=== PATIENT | male | born 1955 | race Caucasian/White ===

== ENCOUNTER → 2017-11-19 | Outpatient (CLI) | payer OTHER ==
[~2017-11-19] MED LIST: ALEVE220 MG PO; LISINOPRIL20 MG PO; NORVASC5 MG PO; PRINIVIL10 MG PO
== END | disposition home or self-care (01) ==
LOC: CDC 08:51
DX: Z01.810 Encounter for preprocedural cardiovascular examination (principal); I45.2 Bifascicular block; K40.20 Bilateral inguinal hernia, without obstruction or gangrene, not specified as recurrent; I49.1 Atrial premature depolarization; I45.10 Unspecified right bundle-branch block; I44.4 Left anterior fascicular block; R94.31 Abnormal electrocardiogram [ECG] [EKG]
CPT/HCPCS: 93000

== ENCOUNTER 2017-11-24 05:21 | Day surgery (SDC) | payer OTHER ==
[~2017-11-24] VITALS: Ht 180.3 cm; Wt 81.7 kg
[2017-11-24] MEDS ORDERED: TYLENOL325 M2 PO (05:59)
[2017-11-24 06:01] VITALS: BP 134/86
[2017-11-24] MEDS ORDERED: COLACE100 MG PO (10:16)
[2017-11-24] MEDS ORDERED: TRAMADOL HCL50 MG PO (10:16)
[2017-11-24 11:30] VITALS: BP 147/89
[2017-11-24 12:22] VITALS: BP 153/92
== END 2017-11-24 12:40 | disposition home or self-care (01) ==
LOC: SDC
PROC: 0YUA4JZ Supplement Bilateral Inguinal Region with Synthetic Substitute, Percutaneous Endoscopic Approach (ICD-10-PCS; principal; 2017-11-24)
DX: K40.21 Bilateral inguinal hernia, without obstruction or gangrene, recurrent (principal); I45.2 Bifascicular block; G89.29 Other chronic pain; M25.562 Pain in left knee; R68.89 Other general symptoms and signs; I10 Essential (primary) hypertension; E78.5 Hyperlipidemia, unspecified; R73.01 Impaired fasting glucose; Z98.1 Arthrodesis status; F17.200 Nicotine dependence, unspecified, uncomplicated; D75.1 Secondary polycythemia; Z80.8 Family history of malignant neoplasm of other organs or systems; Z82.49 Family history of ischemic heart disease and other diseases of the circulatory system
CPT/HCPCS: 88300; C1727; C1781; J0131; J0690; J1100; J1885; J2250; J2710; J2795; J3010; J7120; J7643

== ENCOUNTER 2017-12-02 10:55 | Inpatient (IN) | payer OTHER ==
[~2017-12-02] VITALS: Ht 180.3 cm; Wt 78.6 kg
[~2017-12-02 10:55] MED LIST changes: +COLACE100 MG PO; +TRAMADOL HCL50 MG PO; +TYLENOL325 M2 PO
[2017-12-02 11:28] LABS: HEMATOCRIT 54.6 % (38.0-50.0); HEMOGLOBIN 19.3 G/DL (12.5-16.6); MCH 31.2 PG (29.0-34.0); MCHC 35.3 G/DL (30.0-36.0); MCV 88.2 FL (86-99); PLATELET COUNT 404 K/uL (156-360); RBC DIS.WIDTH-SD 41.9 % (39-53); RED BLOOD COUNT 6.19 M/uL (4.00-5.50); WHITE BLOOD COUNT 13.7 K/uL (4.1-10.2)
[2017-12-02 11:55] LABS: CHLORIDE 95 MEQ/L (99-109); POTASSIUM 4.1 MEQ/L (3.7-5.4); SODIUM 135 MEQ/L (136-147); TOTAL BILIRUBIN 0.8 MG/DL (0.0-1.0)
[2017-12-02 12:01] LABS: ALKALINE PHOSPHATASE 106 IU/L (3-129); ALT (GPT) 15 IU/L (3-49); AST (GOT) 16 IU/L (2-34); GFR ESTIMATE (CALCULATED) > 59 mL/min/ (58.99-99999); GLUCOSE 118 mg/dL (70-99); TOTAL PROTEIN 7.9 G/DL (6.4-8.3); UREA NITROGEN (BUN) 17 mg/dL (9-23)
[2017-12-02 15:52] VITALS: BP 156/82
[2017-12-02 19:25] VITALS: BP 131/79
[2017-12-03 00:25] VITALS: BP 129/77
[2017-12-03 04:07] VITALS: BP 122/76
[2017-12-03 07:46] LABS: HEMATOCRIT 47.2 % (38.0-50.0); MCH 30.8 PG (29.0-34.0); MCHC 34.7 G/DL (30.0-36.0); MCV 88.6 FL (86-99); PLATELET COUNT 308 K/uL (156-360); RBC DIS.WIDTH-CV 12.9 % (11.8-14.6); RBC DIS.WIDTH-SD 42.1 % (39-53); RED BLOOD COUNT 5.33 M/uL (4.00-5.50); WHITE BLOOD COUNT 10.4 K/uL (4.1-10.2)
[2017-12-03 07:50] LABS: HEMOGLOBIN 16.4 G/DL (12.5-16.6)
[2017-12-03 07:55] VITALS: BP 127/82
[2017-12-03 07:55] LABS: ALBUMIN 4.1 g/dL (3.2-4.8); CHLORIDE 98 mEq/L (99-109); POTASSIUM 4.1 mEq/L (3.7-5.4); SODIUM 138 mEq/L (136-147)
[2017-12-03 07:58] LABS: GLUCOSE 94 mg/dL (70-99); TOTAL PROTEIN 6.3 g/dL (6.4-8.3)
[2017-12-03 08:01] LABS: ALKALINE PHOSPHATASE 96 IU/L (3-129); CREATININE 0.8 mg/dL (0.6-1.3); GFR ESTIMATE (CALCULATED) > 59 mL/min/ (58.99-99999)
[2017-12-03 08:02] LABS: UREA NITROGEN (BUN) 20 mg/dL (9-23)
[2017-12-03 08:03] LABS: AST (GOT) 14 IU/L (2-34)
[2017-12-03 08:04] LABS: ALT (GPT) 15 IU/L (3-49)
[2017-12-03 08:44] LABS: C-REACTIVE PROTEIN 14.8 MG/L (0-10)
[2017-12-03 16:04] VITALS: BP 128/92
[2017-12-03 23:07] VITALS: BP 112/77
[2017-12-04 08:07] LABS: HEMATOCRIT 45.1 % (38.0-50.0); HEMOGLOBIN 15.8 G/DL (12.5-16.6); MCH 30.9 PG (29.0-34.0); MCV 88.3 FL (86-99); PLATELET COUNT 285 K/uL (156-360); RBC DIS.WIDTH-CV 12.4 % (11.8-14.6); RBC DIS.WIDTH-SD 41.1 % (39-53); RED BLOOD COUNT 5.11 M/uL (4.00-5.50); WHITE BLOOD COUNT 10.2 K/uL (4.1-10.2)
[2017-12-04 08:16] LABS: CHLORIDE 96 mEq/L (99-109)
[2017-12-04 08:17] LABS: POTASSIUM 3.7 mEq/L (3.7-5.4); SODIUM 138 mEq/L (136-147)
[2017-12-04 08:19] LABS: GLUCOSE 80 mg/dL (70-99); TOTAL PROTEIN 6.2 g/dL (6.4-8.3)
[2017-12-04 08:21] LABS: TOTAL BILIRUBIN 1.1 mg/dL (0.0-1.0)
[2017-12-04 08:22] LABS: ALKALINE PHOSPHATASE 90 IU/L (3-129)
[2017-12-04 08:23] LABS: CREATININE 0.8 mg/dL (0.6-1.3); GFR ESTIMATE (CALCULATED) > 59 mL/min/ (58.99-99999)
[2017-12-04 08:24] LABS: AST (GOT) 20 IU/L (2-34); UREA NITROGEN (BUN) 20 mg/dL (9-23)
[2017-12-04 08:25] LABS: ALT (GPT) 19 IU/L (3-49)
[2017-12-04 08:36] VITALS: BP 111/73
[2017-12-04 15:50] VITALS: BP 123/91
[2017-12-04 19:58] VITALS: BP 144/87
[2017-12-05 00:31] VITALS: BP 138/70
[2017-12-05 06:59] VITALS: BP 114/68
[2017-12-05 15:26] VITALS: BP 138/84
[2017-12-06 06:54] VITALS: BP 133/80
[2017-12-06 11:17] LABS: HEMOGLOBIN 15.3 G/DL (12.5-16.6); MCH 30.1 PG (29.0-34.0); MCV 88.4 FL (86-99); PLATELET COUNT 253 K/uL (156-360); RBC DIS.WIDTH-CV 12.4 % (11.8-14.6); RBC DIS.WIDTH-SD 40.3 % (39-53); RED BLOOD COUNT 5.09 M/uL (4.00-5.50); WHITE BLOOD COUNT 11.2 K/uL (4.1-10.2)
[2017-12-06 12:26] LABS: ALBUMIN 3.8 G/DL (3.2-4.8); ALT (GPT) 26 IU/L (3-49); AST (GOT) 20 IU/L (2-34); CHLORIDE 100 MEQ/L (99-109); GFR ESTIMATE (CALCULATED) > 59 mL/min/ (58.99-99999); GLUCOSE 85 mg/dL (70-99); POTASSIUM 3.8 MEQ/L (3.7-5.4); SODIUM 134 MEQ/L (136-147); UREA NITROGEN (BUN) 12 mg/dL (9-23)
[2017-12-06 12:29] LABS: ALKALINE PHOSPHATASE 73 IU/L (3-129); TOTAL BILIRUBIN 0.6 MG/DL (0.0-1.0); TOTAL PROTEIN 6.2 G/DL (6.4-8.3)
[2017-12-06 15:22] VITALS: BP 128/80
[2017-12-06 17:57] VITALS: BP 124/77
[2017-12-06 23:42] VITALS: BP 144/81
[2017-12-07 03:55] VITALS: BP 136/64
[2017-12-07 07:31] VITALS: BP 130/85
[2017-12-07 09:41] LABS: HEMATOCRIT 45.1 % (38.0-50.0); HEMOGLOBIN 15.9 G/DL (12.5-16.6); MCH 30.6 PG (29.0-34.0); MCHC 35.3 G/DL (30.0-36.0); MCV 86.7 FL (86-99); PLATELET COUNT 270 K/uL (156-360); RBC DIS.WIDTH-CV 12.3 % (11.8-14.6); RBC DIS.WIDTH-SD 39.2 % (39-53); WHITE BLOOD COUNT 10.4 K/uL (4.1-10.2)
[2017-12-07 09:58] LABS: CHLORIDE 100 MEQ/L (99-109); CREATININE 0.9 MG/DL (0.6-1.3); GFR ESTIMATE (CALCULATED) > 59 mL/min/ (58.99-99999); GLUCOSE 105 mg/dL (70-99); MAGNESIUM 1.6 mg/dl (1.3-2.7); PHOSPHORUS 4.1 mg/dL (2.5-4.9); POTASSIUM 4.4 MEQ/L (3.7-5.4); SODIUM 135 MEQ/L (136-147); UREA NITROGEN (BUN) 11 mg/dL (9-23)
[2017-12-07 10:59] VITALS: BP 140/84
[2017-12-07 15:39] VITALS: BP 130/81
[2017-12-07 19:39] VITALS: BP 126/77
[2017-12-07 23:31] VITALS: BP 120/73
[2017-12-08 06:44] LABS: HEMATOCRIT 40.9 % (38.0-50.0); HEMOGLOBIN 14.3 G/DL (12.5-16.6); MCH 30.4 PG (29.0-34.0); PLATELET COUNT 237 K/uL (156-360); RBC DIS.WIDTH-CV 12.4 % (11.8-14.6); RBC DIS.WIDTH-SD 39.8 % (39-53); WHITE BLOOD COUNT 7.8 K/uL (4.1-10.2)
[2017-12-08 07:09] LABS: CHLORIDE 101 MEQ/L (99-109); CREATININE 0.8 MG/DL (0.6-1.3); GFR ESTIMATE (CALCULATED) > 59 mL/min/ (58.99-99999); GLUCOSE 77 mg/dL (70-99); POTASSIUM 3.8 MEQ/L (3.7-5.4); SODIUM 137 MEQ/L (136-147); UREA NITROGEN (BUN) 13 mg/dL (9-23)
[2017-12-08 07:11] VITALS: BP 1252/71
[2017-12-08 11:33] VITALS: BP 129/78
[2017-12-08 15:46] VITALS: BP 140/87
[2017-12-08 23:38] VITALS: BP 135/78
[2017-12-09 07:32] VITALS: BP 140/87
[2017-12-09] MEDS ORDERED: AUGMENTIN875 MG PO (14:28)
[2017-12-09 15:23] VITALS: BP 127/86
[2017-12-10 00:04] VITALS: BP 120/78
[2017-12-10 08:02] VITALS: BP 132/92
== END 2017-12-10 09:59 | disposition home or self-care (01) | DRG 331 ==
LOC: EME 10:55 → EDOF 13:29 → 2EAST 13:29 → EDOF 13:29 → ENRESERV 13:32 → 2EAST 15:10
PROVIDERS: Student in an Organized Health Care Education/Training Program; Surgery
DX: K46.0 Unspecified abdominal hernia with obstruction, without gangrene (principal); K66.0 Peritoneal adhesions (postprocedural) (postinfection); K21.9 Gastro-esophageal reflux disease without esophagitis; I10 Essential (primary) hypertension; D72.829 Elevated white blood cell count, unspecified; E86.0 Dehydration; F17.210 Nicotine dependence, cigarettes, uncomplicated; Z88.5 Allergy status to narcotic agent; R63.0 Anorexia; Z68.24 Body mass index [BMI] 24.0-24.9, adult
CPT/HCPCS: 71045; 74018; 74019; 74177; 80048; 80053; 81003; 83735; 84100; 85027; 86140; 88307; 99281; 99285; C9113; G0378; J0131; J0330; J1100; J1170; J1335; J1885; J2405; J2710; J3010; J7030; J7120; J7643; S0074